=== PATIENT | male | born 1950 | race Caucasian/White ===

== ENCOUNTER → 2019-01-15 | Outpatient (CLI) | payer BC, MEDICARE ==
[~2019-01-15] MED LIST: ASPIRIN81 M2 PO; COREG6.25 MG PO; FIBER500 MG PO; FISH OIL 1,0001 EAC9 PO; FLOMAX0.4 MG PO; FUROSEMIDE 40 M40 MG PO; HYDROCODON-ACE1 EAC8 PO; LIORESAL 10 MG10 MG PO; LOTREL 5-20 MG1 EACH PO; POTASSIUM20 PO; PREDNISONE 10 M10 MG PO; TAMSULOSIN HCL0.4 M1 PO; TRAMADOL 50 MG50 MG PO; VITAMIN D400 UNI1 PO
== END ==
LOC: M.LAB 01-14 15:30 → M.MRI 01-14 16:30 → M.LAB 12:07
PROVIDERS: Family Medicine
DX: M47.816 Spondylosis without myelopathy or radiculopathy, lumbar region (principal); M51.24 Other intervertebral disc displacement, thoracic region; M51.26 Other intervertebral disc displacement, lumbar region